=== PATIENT | male | born 1950 | race Caucasian/White ===

== ENCOUNTER 2017-08-03 07:00 | Outpatient (CLI) | payer BC, MEDICARE | END 2017-08-03 07:01 | disposition home or self-care (01) | LOC: BICMRI 07:00 | PROVIDERS: ATTEND Physician Assistant Surgical | DX: M54.5 Low back pain (principal); M54.12 Radiculopathy, cervical region; M47.896 Other spondylosis, lumbar region; M46.92 Unspecified inflammatory spondylopathy, cervical region; M48.061 Spinal stenosis, lumbar region without neurogenic claudication; M99.73 Connective tissue and disc stenosis of intervertebral foramina of lumbar region; M51.36 Other intervertebral disc degeneration, lumbar region | CPT/HCPCS: 72050; 72110; 72148 ==

== ENCOUNTER 2022-01-13 19:30 | Outpatient (CLI) | payer BC | END 2022-01-13 19:31 | disposition home or self-care (01) | LOC: SLEEPLAB 19:30 | PROVIDERS: ATTEND Otolaryngology Plastic Surgery within the Head & Neck | DX: G47.33 Obstructive sleep apnea (adult) (pediatric) (principal); R53.83 Other fatigue; R06.83 Snoring; G47.00 Insomnia, unspecified; E66.9 Obesity, unspecified; Z68.41 Body mass index [BMI] 40.0-44.9, adult | CPT/HCPCS: 95800 ==

== ENCOUNTER 2022-02-21 19:00 | Outpatient (CLI) | payer BC | END 2022-02-21 19:01 | disposition home or self-care (01) | LOC: SLEEPLAB 19:00 | PROVIDERS: ATTEND Otolaryngology Plastic Surgery within the Head & Neck | DX: G47.33 Obstructive sleep apnea (adult) (pediatric) (principal); R53.83 Other fatigue; G47.10 Hypersomnia, unspecified; R06.83 Snoring; E66.9 Obesity, unspecified; Z68.41 Body mass index [BMI] 40.0-44.9, adult | CPT/HCPCS: 95811 ==

== ENCOUNTER 2023-07-18 13:45 | Outpatient (CLI) | payer BC, MEDICARE ==
[2023-07-18 15:07] LABS: #Basophils 0.1 10x3/uL (0.0-0.2); #Eosinphils 0.2 10x3/uL (0.0-0.5); #Monocytes 0.6 10x3/uL (0.0-1.1); #Neutrophils 4.9 10x3/uL (1.5-8.4); %Basophils 0.8 % (0.0-2.0); %Eosinophils 2.3 % (0.0-6.0); %Lymphocytes 26.6 % (18.0-47.0); %Monocytes 7.9 % (0.0-10.0); Hematocrit 42.9 % (38.8-50.0); Hemoglobin 14.4 g/dL (13.5-17.5); Mean Corpuscular HGB CONC 33.6 g/dL (32.0-36.0); Mean Corpuscular Hemoglobin 29.5 pg (27.0-33.0); Mean Corpuscular Volume 87.9 fl (81.2-95.1); Platelet Count 305 10x3/uL (150-450); RBC Distribution Width 12.8 % (11.5-14.5); Red Blood Cell (RBC) Count 4.88 10x6/uL (4.32-5.72); White Blood Cell (WBC) Count 7.9 10x3/uL (3.5-10.5)
[2023-07-18 15:24] LABS: ALT (SGPT) 16 U/L (8-55); AST (SGOT) 23 U/L (5-34); Albumin 4.1 g/dL (3.4-4.8); Alkaline Phosphatase 87 U/L (40-110); Anion Gap 15 mmol/L (10-20); BUN (Urea Nitrogen) 22 mg/dL (8.4-25.7); Bilirubin, Total 0.9 mg/dL (0.2-1.2); Calc. Creatinine Clearance 0 mL/min (70-130); Calcium 10.1 mg/dL (7.8-10.44); Carbon Dioxide 22 mmol/L (23-31); Chloride 102 mmol/L (98-107); Estimated GFR 79; Globulin 2.6 g/dL (2.4-3.5); Glucose 98 mg/dL (83-110); Potassium 4.1 mmol/L (3.5-5.1); Protein, Total 6.7 g/dL (5.8-8.1); Sodium 135 mmol/L (136-145)
== END 2023-07-18 13:46 | disposition home or self-care (01) ==
LOC: LABBT 13:45
PROVIDERS: ATTEND Surgery
DX: Z01.818 Encounter for other preprocedural examination (principal); K21.9 Gastro-esophageal reflux disease without esophagitis; K44.9 Diaphragmatic hernia without obstruction or gangrene
CPT/HCPCS: 80053; 85025; 93005; 93010

== ENCOUNTER 2023-07-18 14:00 | Inpatient (IN) | payer BC, MEDICARE ==
[2023-07-18 14:27] VITALS: BMI 41.3
[2023-07-24] MEDS ORDERED: Rocuronium Bromide 10 MG/ML (10ML VIAL) ONE ×2 (07:56→10:45)
[2023-07-24] MEDS ORDERED: Dexamethasone 4 mg/ml Vial ONE (07:56)
[2023-07-24] MEDS ORDERED: PROPOFOL 40 ML ONE (07:56)
[2023-07-24] MEDS ORDERED: fentaNYL PF 100 MCG/2 ML SYRINGE ONE ×3 (07:56→13:40)
[2023-07-24] MEDS ORDERED: Ondansetron PF 4 MG/2 ML Vial ONE ×2 (07:56→10:45)
[2023-07-24] MEDS ORDERED: SUGAMMADEX SODIUM 200 MG/2 ML VIAL ONE ×2 (07:56→13:06)
[2023-07-24] MEDS ORDERED: Lidocaine 1% PF 5 ML VIAL ONE ×2 (07:56→10:45)
[2023-07-24] MEDS ORDERED: EPINEPHrine 1 MG/ML VIAL ONE (10:03)
[2023-07-24] MEDS ORDERED: Bupivacaine 0.25% HCL 30 ML VIAL ONE (10:03)
[2023-07-24] MEDS ORDERED: CEFAZOLIN 2 GM VIAL ONE (10:35)
[2023-07-24] MEDS ORDERED: Sodium Chloride 0.9% 100 ML ONE (10:36)
[2023-07-24] MEDS ORDERED: Heparin 5,000 UNITS/ML VIAL ONE (10:38)
[2023-07-24] MEDS ORDERED: PROPOFOL 200 MG/20 ML VIAL ONE (10:45)
[2023-07-24] MEDS ORDERED: PHENYLEPHRINE-NS 100 MCG/ML 10 ML SYRINGE ONE ×2 (10:45→13:29)
[2023-07-24] MEDS ORDERED: Dexamethasone 20 MG/5 ML VIAL ONE (10:45)
[2023-07-24] MEDS ORDERED: Esmolol 100 MG/10 ML VIAL ONE (10:45)
[2023-07-24] MEDS ORDERED: Promethazine HCl 25 MG/ML VIAL IM PRN (13:24)
[2023-07-24] MEDS ORDERED: Ipratropium/Albuterol 3 ML NEB NEB PRN (13:24)
[2023-07-24] MEDS ORDERED: diphenhydrAMINE 50 MG/ML VIAL IVP PRN (13:24)
[2023-07-24] MEDS ORDERED: Glucagon 1 MG/ML KIT IM PRN (13:24)
[2023-07-24] MEDS ORDERED: Ondansetron PF 4 MG/2 ML Vial IVP PRN ×2 (13:24→14:45)
[2023-07-24] MEDS ORDERED: Dextrose 5% in Water 1,000 ML IV PRN (13:24)
[2023-07-24] MEDS ORDERED: Dextrose 50% Abboject 50 ML SYRINGE SLOW IVP PRN (13:24)
[2023-07-24] MEDS ORDERED: hydrALAZINE 20 MG/ML VIAL SLOW IVP PRN (13:24)
[2023-07-24] MEDS ORDERED: Hydrocodone-Acetamin 15 ML UDCUP PO PRN ×2 (13:24→14:39)
[2023-07-24] MEDS ORDERED: EPINEPHrine 1 MG/10 ML Abboject SYRINGE ONE (13:29)
[2023-07-24] MEDS ORDERED: diphenhydrAMINE 50 MG/ML VIAL ONE (13:32)
[2023-07-24] MEDS ORDERED: fentaNYL 50 mcg/mL 1 mL Vial ONE ×3 (13:34→13:57)
[2023-07-24] MEDS ORDERED: Famotidine/PF 20 mg/2ml Vial ONE (13:34)
[2023-07-24] MEDS ORDERED: HYDROmorphone 0.5 MG/0.5 ML SYRINGE ONE ×3 (13:58→14:51)
[2023-07-24] MEDS ORDERED: diphenhydrAMINE 25 MG CAP PO PRN (14:45)
[2023-07-24] MEDS ORDERED: diphenhydrAMINE 50 MG/ML VIAL IM/IV PRN (14:45)
[2023-07-24] MEDS ORDERED: Fentanyl CADD 100 ML IVPB SCH (14:45)
[2023-07-24] MEDS ORDERED: Zolpidem Tartrate 5 MG TAB PO PRN (14:45)
[2023-07-24] MEDS ORDERED: Naloxone HCl 0.4 mg/ml Vial IV PRN (14:45)
[2023-07-24] MEDS: 1/2 NS w/KCL 20 mEq 1,000 ML IV SCH (17:22)
[2023-07-25] MEDS: 1/2 NS w/KCL 20 mEq 1,000 ML IV SCH ×4 (01:53→21:45)
[2023-07-25 07:43] LABS: Hematocrit 46.5 % (42.0-52.0); Hemoglobin 15.5 g/dL (14.0-18.0); Red Blood Cell (RBC) Count 5.09 mill/uL (4.70-6.10); White Blood Cell (WBC) Count 15.7 10x3/uL (4.8-10.8)
[2023-07-25 07:44] LABS: #Monocytes 1.6 thou/uL (0.11-0.59); #Neutrophils 12.4 thou/uL (1.40-6.50); %Basophils 0.3 % (0.0-1.0); %Lymphocytes 9.5 % (21.0-51.0); %Monocytes 10.4 % (0.0-10.0); %Neutrophils 79.2 % (42.0-75.0); Mean Corpuscular HGB CONC 33.3 g/dL (32.0-36.0); Mean Corpuscular Hemoglobin 30.5 pg (27.0-31.0); Mean Corpuscular Volume 91.4 fl (78.0-98.0); Mean Platelet Volume 9.6 fL (7.4-10.4); Platelet Count 335 10x3/uL (130-400); RBC Distribution Width 13.2 % (11.5-14.5)
[2023-07-25 07:59] LABS: Anion Gap 14 mmol/L (10-20); BUN (Urea Nitrogen) 15 mg/dL (8.4-25.7); Calc. Creatinine Clearance 123 mL/min (70-130); Calcium 9.2 mg/dL (7.8-10.44); Carbon Dioxide 25 mmol/L (23-31); Chloride 98 mmol/L (98-107); Estimated GFR 73; Glucose 117 mg/dL (83-110); Potassium 4.1 mmol/L (3.5-5.1); Sodium 133 mmol/L (136-145)
[2023-07-25] MEDS: Hydrocodone-Acetamin 15 ML UDCUP PO PRN ×3 (08:35→18:20)
[2023-07-25] MEDS: Pantoprazole 40 MG VIAL IVP SCH (08:38)
[2023-07-26] MEDS: Hydrocodone-Acetamin 15 ML UDCUP PO PRN ×2 (00:46→10:24)
[2023-07-26] MEDS: 1/2 NS w/KCL 20 mEq 1,000 ML IV SCH (03:41)
[2023-07-26 07:54] VITALS: BP 152/90; TEMP 98.7
[2023-07-26] MEDS: Pantoprazole 40 MG VIAL IVP SCH (10:22)
== END 2023-07-26 12:00 | disposition home or self-care (01) | DRG 327 ==
LOC: SURG A 07-24 07:24 → SJJU 07-24 19:50
PROVIDERS: ADMIT Surgery; ATTEND Surgery
PROC: 0BQT4ZZ Repair Diaphragm, Percutaneous Endoscopic Approach (ICD-10-PCS; principal; 2023-07-24)
PROC: 0D164ZA Bypass Stomach to Jejunum, Percutaneous Endoscopic Approach (ICD-10-PCS; 2023-07-24)
PROC: 8E0W4CZ Robotic Assisted Procedure of Trunk Region, Percutaneous Endoscopic Approach (ICD-10-PCS; 2023-07-24)
PROC: 3E033XZ Introduction of Vasopressor into Peripheral Vein, Percutaneous Approach (ICD-10-PCS; 2023-07-24)
DX: K44.9 Diaphragmatic hernia without obstruction or gangrene (principal); Z68.41 Body mass index [BMI] 40.0-44.9, adult; K21.9 Gastro-esophageal reflux disease without esophagitis; I10 Essential (primary) hypertension; E78.5 Hyperlipidemia, unspecified; E03.9 Hypothyroidism, unspecified; E11.9 Type 2 diabetes mellitus without complications; E66.9 Obesity, unspecified; N40.0 Benign prostatic hyperplasia without lower urinary tract symptoms; F10.90 Alcohol use, unspecified, uncomplicated; M19.90 Unspecified osteoarthritis, unspecified site; Z96.653 Presence of artificial knee joint, bilateral; Z98.890 Other specified postprocedural states; Z87.81 Personal history of (healed) traumatic fracture; Z91.040 Latex allergy status; Z79.899 Other long term (current) drug therapy; Z82.49 Family history of ischemic heart disease and other diseases of the circulatory system
CPT/HCPCS: 36415; 80048; 85025; C9113; J0171; J1100; J1170; J1200; J1644; J1650; J2405; J2704; J3010; J3480; J3490; S0020; S0028

== ENCOUNTER 2023-09-19 14:20 | Outpatient (CLI) | payer BC ==
[2023-09-19 15:37] LABS: Bilirubin Neg (Negative); Blood, Urine 250 (Negative); Clarity Cloudy (Clear); Glucose, Urine (Dipstick) >=1000 mg/dL (Negative); Ketone, Urine Negative (Negative); Leukocyte 500 (Negative); Nitrite Negative (Negative); Protein, Urine (Dipstick) 500 mg/dl (Neg-Trace); Specific Gravity, Urine 1.015 (1.005-1.030); Urobilinogen Normal mg/dL (Less than 2)
[2023-09-19 16:18] LABS: RBC/HPF Greater than 50 HPF (0-3); Transitional Epithelial 0-3 HPF (None Seen)
[2023-09-19 16:20] LABS: Bacteria/HPF 3+ HPF (None Seen); Mucous/LPF 2+ LPF (<2+); Sperm/HPF Rare HPF (None Seen)
== END 2023-09-19 14:21 | disposition home or self-care (01) ==
LOC: LABBT 14:20
PROVIDERS: ATTEND Urology
DX: Z01.812 Encounter for preprocedural laboratory examination (principal); N20.1 Calculus of ureter
CPT/HCPCS: 81001; 87086

== ENCOUNTER 2023-09-25 09:47 | Day surgery (SDC) | payer BC ==
[2023-09-21 12:19] VITALS: BMI 36.3
[2023-09-25] MEDS ORDERED: Iopamidol 30 ML ONE (14:00)
[2023-09-25] MEDS ORDERED: Lidocaine 1% PF 5 ML VIAL ONE (14:09)
[2023-09-25] MEDS ORDERED: Ondansetron PF 4 MG/2 ML Vial ONE ×2 (14:09→14:37)
[2023-09-25] MEDS ORDERED: PROPOFOL 20 ML ONE ×2 (14:09→14:38)
[2023-09-25] MEDS ORDERED: LevoFLOXacin D5W 500 mg (100 mL) BAG ONE (14:18)
== END 2023-09-25 17:23 | disposition home or self-care (01) ==
LOC: SDC 09:47
PROVIDERS: ATTEND Urology
PROC: 0T778DZ Dilation of Left Ureter with Intraluminal Device, Via Natural or Artificial Opening Endoscopic (ICD-10-PCS; principal; 2023-09-25)
DX: N20.2 Calculus of kidney with calculus of ureter (principal); Z91.040 Latex allergy status; Z88.8 Allergy status to other drugs, medicaments and biological substances; Z79.899 Other long term (current) drug therapy; Z98.890 Other specified postprocedural states
CPT/HCPCS: 74420; 82365; 88300; C1747; C2617; J1956; J2405; J2704; Q9967